=== PATIENT | male | born 1980 | race Caucasian/White ===

== ENCOUNTER 2021-06-15 01:23 | Emergency (ER) | payer MEDICAID, SELFPAY ==
[2021-06-15 01:24] VITALS: BP 133/100; PULSE 117; RESP 18; TEMP 36.8; O2SAT 97; BMI 23.2
--- NOTE | 2021-06-15 02:13 | CT_ITS ---
STUDY: CT ABDOMEN AND PELVIS WITH CONTRAST REASON FOR EXAM: Male, 41 years old. Abdominal pain -- IV PO Contrast RADIATION DOSAGE (If Supplied By Facility): CTDIvol = ( 12.12 ) mGy, DLP = ( 778.38 ) mGycm TECHNIQUE: Transaxial images were obtained from the dome of the diaphragm to the symphysis pubis without oral contrast. Oral and amp; IV Gastrografin and amp; 100mL Isovue-300 was administered. Sagittal and coronal images were reconstructed. Individualized dose optimization techniques were used for this CT. COMPARISON: None. FINDINGS: The visualized lung bases are unremarkable. The visualized portions of the heart are within normal limits. Normal liver. Normal gallbladder and extrahepatic biliary system. There is mild splenomegaly. Normal pancreas. Normal bilateral adrenal glands. Normal right kidney. There is a small left upper pole renal cortical cyst, for which no further evaluation is advised. Otherwise normal left kidney. There is a small hiatal hernia. Normal small intestine. Normal colon. The appendix is visualized on axial images 69-83 and it appears normal. Normal abdominal aorta. Normal inferior vena cava. Normal retroperitoneum. Normal urinary bladder. Normal abdominal wall. There is normal to the level degenerative changes in lumbar spine. There is a left laminotomy defect at the L4 level. CT/Abdomen/Pelvis WITH Contrast IMPRESSION: Small hiatal hernia. Small left renal cyst. No demonstrated urinary calculi or hydronephrosis. Degenerative changes and postsurgical changes in the lumbar spine. No evidence for acute pathology. Electronically Signed: Lázaro Hyatt MD at 5:34 EDT , Service support ,
[2021-06-15 02:22] LABS: Absolute Lymphocyte Count 1.29 X10^3/uL (0.83-4.51); Absolute Neutrophil Count 11.3 X10^3/uL (2.0-7.7); Basophil# 0.06 X10^3/uL; Basophil% 0.4 % (0-1); Eosinophil# 0.04 X10^3/uL; Eosinophils% 0.3 % (0-5); Hematocrit 52.5 % (40-54); Hemoglobin 17.9 g/dL (13.0-16.5); Lymphocyte # 1.29 X10^3/ul (0.83-4.51); Lymphocyte % 9.5 % (19-41); Mean Corp Hgb Conc 34.1 g/dL (32-36); Mean Corpuscular Hgb 29.2 pg (27.0-32.0); Mean Corpuscular Volume 85.5 fL (80-94); Mean Platelet Vol. 10.5 fl (6.2-12.0); Monocyte# 0.78 X10^3/uL; Monocyte% 5.8 % (0-10); NRBC Flagged by Analyzer 0 % (0-5); Neutrophil # 11.32 X10^3/uL (2.7-7.7); Neutrophil % 83.6 % (47-70); Platelet Count 447 K/mm3 (150-450); RBC Distribution Width CV 13.6 % (11.6-14.6); RBC Distribution Width SD 42.3 fl (35.1-43.9); Red Blood Count 6.14 M/mm3 (4.6-6.2); White Blood Count 13.5 K/mm3 (4.4-11.0)
[2021-06-15] MEDS: Ondansetron 4 MG/2 ML Vial IV (02:27)
[2021-06-15] MEDS: 0.9% Normal Saline 1,000 ML 1000 ML IV (02:27)
[2021-06-15] MEDS: Morphine 2 MG/ML Syringe IV (02:27)
--- NOTE | 2021-06-15 02:38 | EDS_ITS ---
HPI HPI - GI History of Present Illness Chief Complaint: Abd Pain Informant: patient Abdominal Pain/Flank Pain Onset: Yesterday Context: Sudden Onset Timing: Continuous Quality: Stabbing Location: Diffuse Current Severity: Severe Worsened by: Food Relieved by: Nothing Nausea/Vomiting/Emesis GI Symptom: Positive for Nausea and Vomiting Quality: Negative for Blood streaks, Coffee ground and Hematemesis Diarrhea/Melena/Hematochezia GI Symptom: Negative for Diarrhea, Melena and Hematochezia Associated Symptoms Associated Symptoms: Negative for Dysuria, Frequency and Hematuria Narrative Narrative: Patient presents with abdominal pain, nausea, vomiting that began yesterday. Patient states it began rather suddenly. Patient states it has been constant since yesterday. Patient states it is diffuse across his abdomen. Patient describes his pain as stabbing. Patient states his pain is worse with any eating or drinking. Patient admits to nausea and vomiting. Patient denies any hematemesis or coffee-ground emesis. Patient denies any diarrhea, melena, or hematochezia. Patient denies any dysuria, hematuria, or frequency. [facility] Medical History (Updated 06/15/21 @ 07:[address] Justo Bobby DO) Back pain with history of spinal surgery GERD (gastroesophageal reflux disease) Hypertension Home Medications docusate sodium 100 mg PO DAILY 06/15/21 [History Last Taken Unknown] omeprazole 40 mg PO DAILY 06/15/21 [History Last Taken Unknown] ondansetron HCl 4 mg PO Q8H PRN PRN #10 tab 06/15/21 [Rx Last Taken Unknown] zolpidem 5 mg PO DAILY 06/15/21 [History Last Taken Unknown] Allergy/AdvReac Type Severity Reaction Status Date / Time No Known Allergies Allergy Verified 06/15/21 01:27 Surgical History (Updated 06/15/21 @ 02:[address] Justo Bobby DO) History of back surgery Social History Smoking Status: Former smoker ROS ROS ED Constitutional Constitutional ED: Denies chills or fever(s) Eyes Eyes: Denies blurry vision or change in vision ENT ENT ED: Denies rhinorrhea or sore throat Cardiovascular Cardiovascular: Denies chest pain or palpitations Respiratory/Chest Respiratory/Chest: Denies cough or dyspnea Gastrointestinal Gastrointestinal: Reports abdominal pain, nausea and vomiting Genitourinary Genitourinary ED: Denies dysuria or hematuria Musculoskeletal Musculoskeletal: Reports back pain; Denies neck pain Integumentary Denies abscess or rash Neurologic Neurologic: Denies headache(s) or weakness Allergic/Immunologic Allergic/Immunologic ED: Denies mouth swelling or urticaria EXAM Physical Exam Const Vital Signs: 06/15/21 01:24 06/15/21 06:18 Temperature 98.3 F 98.1 F Temperature Source Oral Temporal Pulse Rate 117 H 76 Respiratory Rate 18 16 Blood Pressure 133/100 H 133/75 H Blood Pressure Mean 111 94 Pulse Ox 97 98 Oxygen Delivery Method Room Air Room Air Positive well nourished and well developed General Appearance ED: well developed HEENT Reports moist mucous membranes Neck supple and no JVD Resp normal respiratory effort and clear to auscultation bilaterally Cardio regular rate, regular rhythm and no murmurs GI normal to inspection, nondistended, normoactive bowel sounds and non-distended Auscultation: normoactive bowel sounds Palpation: soft and tender epigastric, LLQ, RLQ, LUQ, RUQ, periumbilical and suprapubic; Negative for guarding or rebound tenderness present Extremity normal to inspection General Extremety ED: Negative for edema or tenderness General Extremity: Negative for edema Neuro oriented x3, CN's II-XII intact bilaterally and no sensory deficits noted Sensorium / Orientation: alert Motor Exam: strength 5/5 throughout Psych mental status grossly normal Skin no rashes or lesions noted MDM MDM MDM Narrative Medical decision making narrative: Patient was given a dose of morphine and Zofran here. Patient told the nurse that the morphine made his pain worse. When I went in to discuss this with him he said the morphine had not helped. Patient was given a dose of Bentyl. Patient was also given a dose of Dilaudid. CBC shows a mild leukocytosis of 13.5. Comprehensive metabolic profile was essentially within normal limits. Creatinine was slightly elevated 1.83. There are no prior results to compare with. Urinalysis was obtained. There is no evidence of urinary tract infection. Specific gravity was 1.005. Ketones were negative. CT scan of the abdomen pelvis was obtained. There is no acute intra- abdominal abnormality. This was interpreted by the radiologist and reviewed by myself. Patient was given a prescription for Zofran. Patient was instructed to start with small amounts of fluids and increase as he starts to feel better. Patient requested to be admitted to the hospital. There is no indication for admission. Patient was instructed to follow-up with his primary care physician in 3 to 5 days. Patient understood and was agreeable with the plan. All questions were answered. Lab Data Attestation: I reviewed the patient's lab results. Labs: Laboratory Results - last 24 hr 06/15/21 06/15/21 06/15/21 01:35 01:35 06:19 WBC 13.5 H RBC 6.14 Hgb 17.9 H Hct 52.5 MCV 85.5 MCH 29.2 MCHC 34.1 RDW Std Deviation 42.3 RDW Coeff of [place] 13.6 Plt Count 447 MPV 10.5 Immature Gran % (Auto) 0.400 Neut % (Auto) 83.6 H Lymph % (Auto) 9.5 L [place] % (Auto) 5.8 Eos % (Auto) 0.3 Baso % (Auto) 0.4 Absolute Neuts (auto) 11.3 H Absolute Lymphs (auto) 1.29 Nucleated RBC % 0 Sodium 138 Potassium 4.5 Chloride 105 Carbon Dioxide 23.0 Anion Gap 10 BUN 13 Creatinine 1.83 H Estim Creat Clear Calc 58.89 Est GFR (MDRD) Af Amer 53 L Est GFR (MDRD) Non-Af 44 L BUN/Creatinine Ratio 7.1 L Glucose 169 H Calcium 10.5 H Total Bilirubin 1.10 H AST 24 ALT 35 Alkaline Phosphatase 85 Total Protein 9.2 H Albumin 4.6 Globulin 4.6 H Albumin/Globulin Ratio 1.0 Lipase 96 Urine Color Yellow Urine Clarity Clear Urine pH 7.0 Ur Specific [place] 1.005 Urine Protein 15 H Urine Glucose (UA) Normal Urine Ketones Negative Urine Occult Blood Negative Urine Nitrite Negative Urine Bilirubin Negative Urine Urobilinogen Normal Ur Leukocyte Esterase Negative Urine RBC 0 SEEN Urine WBC 0 SEEN Ur Squamous Epith Cells 0 SEEN Urine Bacteria 1+ Hyaline Casts 5-10 SEEN Urine Mucus 0 SEEN Radiography Diagnostic Testing: Radiology Impression Abdomen/Pelvis CT 06/15/21 02:13 IMPRESSION: Small hiatal hernia. Small left renal cyst. No demonstrated urinary calculi or hydronephrosis. Degenerative changes and postsurgical changes in the lumbar spine. No evidence for acute pathology. Electronically Signed: Lázaro Hyatt MD at 5:34 EDT , Service support , Discharge Plan Triage Chief Complaint: Abd Pain ED Provider: Justo Bobby Dx/Rx/DC Orders Clinical Impression: Abdominal pain, Nausea and vomiting Instructions: ED Vomiting (Adult), ED Abdominal Pain Unkn Cause Male... Prescriptions: Continued ondansetron HCl 4 mg tablet 4 mg PO Q8H PRN PRN (Reason: Nausea) Qty: 10 RF: 0 No Action omeprazole 40 mg capsule,delayed release(DR/EC) 40 mg PO DAILY RF: 0 docusate sodium 100 mg capsule 100 mg PO DAILY RF: 0 zolpidem 5 mg tablet 5 mg PO DAILY RF: 0 Primary Care Provider: Robert Guillaume Referrals: Robert Guillaume MD [Primary Care Provider] - 3-5 Days Disposition Disposition: Home, Self Care
[2021-06-15 02:44] LABS: AST(SGOT) 24 U/L (15-37); Alanine Aminotransfer ALT/SGPT 35 U/L (16-61); Albumin, Serum 4.6 g/dL (3.2-5.0); Alkaline Phosphatase 85 U/L (45-117); Anion Gap 10 (5-15); BUN 13 mg/dL (7-18); BUN/Creat Ratio 7.1 RATIO (10-20); Calcium,Total 10.5 mg/dL (8.5-10.1); Chloride 105 mmol/L (98-107); Creatinine, Serum 1.83 mg/dL (0.70-1.30); EST Glomerular Filtration Rate 44 mL/min (>60); Est Glom Filt Rate - Afr Amer 53 mL/min (>60); Estimated Creatinine Clearance 58.89 ml/min; Globulin 4.6 g/dL (2.2-4.2); Glucose 169 mg/dL (74-106); Lipase 96 U/L (73-393); Potassium 4.5 mmol/L (3.5-5.1); Protein, Total 9.2 g/dL (6.4-8.2); Sodium Level 138 mmol/L (136-145)
--- NOTE | 2021-06-15 02:51 | ED.RN ---
PT is attempting to drink CT contrast. PT did report the Morphine and Zofran that was given made his symptoms worse. aware. PT then puts call light on to request MD. aware. PT states he can't drink the contrast. aware.
[2021-06-15] MEDS: Dicyclomine 20 MG/2 ML Vial IM (03:04)
--- NOTE | 2021-06-15 03:10 | ED.RN ---
PT drank 1/2 CT contrast and vomited. MD krishnan.
[2021-06-15] MEDS: HYDROmorphone 1 MG/ML Syringe 0.5 MG IV (03:38)
[2021-06-15 06:18] VITALS: BP 133/75; PULSE 76; RESP 16; TEMP 36.7; O2SAT 98
[2021-06-15 06:28] LABS: Mucous, Urine 0 SEEN /hpf (<or=2+); Red Blood Cells-Urine 0 SEEN /hpf (0-5); Squamous Epithelial Cells - UA 0 SEEN /hpf (0-5); White Blood Cells 0 SEEN /hpf (0-5)
[2021-06-15 06:32] LABS: Glucose, Dipstick Normal (Normal); Ketone-Dipstick Negative (Negative); Leukocyte Esterase-Dipstick Negative /ul (Negative); Nitrite-Dipstick Negative (Negative); Occult Blood-Urine Negative /ul (Negative); Protein-Dipstick 15 mg/dl (Negative); Specific Gravity, Urine 1.005 (1.002-1.030); Urine Bilirubin Dipstick Negative (Negative); Urine Urobilinogen Normal (Normal)
[2021-06-15 06:34] LABS: Color, Urine Yellow (Yellow); Urine Clarity Clear (Clear)
[2021-06-15 07:07] LABS: Bacteria 1+ /hpf (None Seen); Hyaline Cast 5-10 SEEN /lpf (0-5)
[2021-06-15 08:25] VITALS: BP 129/78; PULSE 73; RESP 18; O2SAT 97
--- NOTE | 2021-06-15 08:26 | ED.RN ---
THIS NURSE REVIEWED D/C INSTRUCTIONS WITH PT. PT VERBALIZED UNDERSTANDING OF INSTRUCTIONS. IV D/C. IV CATHETER INTACT. PT TOLERATED WELL. PT DENIES FURTHER NEEDS OR QUESTIONS AT THIS TIME. PT AMBULATES FROM ROOM ON OWN WITHOUT ASSISTANCE FROM STAFF
== END 2021-06-15 08:27 | disposition home or self-care (01) ==
PROVIDERS: Emergency Provider Emergency Medicine; PCP Family Medicine
DX: R10.9 Unspecified abdominal pain (principal); R11.2 Nausea with vomiting, unspecified; I10 Essential (primary) hypertension; K21.9 Gastro-esophageal reflux disease without esophagitis; K44.9 Diaphragmatic hernia without obstruction or gangrene; M47.816 Spondylosis without myelopathy or radiculopathy, lumbar region; N28.1 Cyst of kidney, acquired; Z79.899 Other long term (current) drug therapy; Z87.891 Personal history of nicotine dependence
CPT/HCPCS: 74177; 80053; 81001; 83690; 85025; 96361; 96372; 96374; 96375; 99283; J7030; Q9967; A4216; J2405